=== PATIENT | female | born 1990 | race Two or more races ===

== ENCOUNTER 2021-04-21 15:15 | Emergency (ER) | payer OTHER ==
[2021-04-21 15:54] VITALS: BP 100/78; PULSE 88; TEMP 99.2; BMI 30.9
[2021-04-21] MEDS ORDERED: DEXAMETHASONE LIQUID 0.5 MG/5 ML PO ONE (16:51)
[2021-04-25 01:06] LABS: SARS-CoV-2 NAA Detected (Not Detected)
== END 2021-04-21 17:45 | disposition home or self-care (01) ==
LOC: JER 15:15
DX: R05.1 Acute cough (principal); R09.81 Nasal congestion; J06.9 Acute upper respiratory infection, unspecified
CPT/HCPCS: 87804; 99283-25; C9803; U0003; U0005

== ENCOUNTER 2021-08-16 19:15 | Emergency (ER) | payer OTHER ==
[2021-08-16 19:25] VITALS: BP 114/70; PULSE 113; TEMP 102.8; BMI 31.0
[2021-08-16] MEDS ORDERED: KETOROLAC TROMETHAMINE 30 MG/1 ML VIAL IM ONE (20:00)
[2021-08-16] MEDS ORDERED: ACETAMINOPHEN 500 MG TABLET (FP) PO ONE (20:00)
[2021-08-16] MEDS ORDERED: KETOROLAC TROMETHAMINE 30 MG/1 ML VIAL ONE (20:03)
[2021-08-16] MEDS ORDERED: ACETAMINOPHEN 325 MG TABLET (FP) ONE (20:03)
[2021-08-16] MEDS ORDERED: DEXAMETHASONE LIQUID 0.5 MG/5 ML PO ONE (20:20)
[2021-08-16] MEDS ORDERED: DEXAMETHASONE SOD PHOSPHATE 10 MG/1 ML VIAL ONE (20:24)
[2021-08-17 12:09] LABS: SARS-CoV-2 NAA Not Detected (Not Detected)
== END 2021-08-16 21:14 | disposition home or self-care (01) ==
LOC: JER 19:15
PROC: 3E023GC Introduction of Other Therapeutic Substance into Muscle, Percutaneous Approach (ICD-10-PCS; principal; 2021-08-16)
DX: R07.0 Pain in throat (principal)
CPT/HCPCS: 87651; 87804; 99284-25; C9803-CS; U0003; U0005

== ENCOUNTER 2023-01-12 08:17 | Emergency (ER) | payer OTHER ==
[2023-01-12] MEDS ORDERED: KETOROLAC TROMETHAMINE 30 MG/1 ML VIAL IM ONE (08:39)
[2023-01-12] MEDS ORDERED: DIPHTH,PERTUSS(ACELL),TET 0.5 ML DISP.SYRIN IM ONE ×2 (08:40→08:41)
[2023-01-12 08:41] VITALS: BP 113/67; RESP 18; TEMP 98; BMI 30.6
[2023-01-12] MEDS ORDERED: KETOROLAC TROMETHAMINE 30 MG/1 ML VIAL ONE (08:41)
[2023-01-12] MEDS ORDERED: ACETAMINOPHEN 500 MG TABLET (FP) PO ONE (09:35)
[2023-01-12] MEDS ORDERED: ACETAMINOPHEN 500 MG TABLET (FP) ONE (10:10)
[2023-01-12 11:49] VITALS: PULSE 88
== END 2023-01-12 11:52 | disposition home or self-care (01) ==
LOC: JER 08:17
PROC: 0HQHXZZ Repair Right Upper Leg Skin, External Approach (ICD-10-PCS; principal; 2023-01-12)
PROC: 3E0233Z Introduction of Anti-inflammatory into Muscle, Percutaneous Approach (ICD-10-PCS; 2023-01-12)
PROC: 3E0234Z Introduction of Serum, Toxoid and Vaccine into Muscle, Percutaneous Approach (ICD-10-PCS; 2023-01-12)
DX: S71.111A Laceration without foreign body, right thigh, initial encounter (principal); W26.8XXA Contact with other sharp object(s), not elsewhere classified, initial encounter
CPT/HCPCS: 12001-25; 90471; 90715; 96372; 99284-25